=== PATIENT | female | born 1965 | race Hispanic/Latino ===

== ENCOUNTER 2017-07-16 05:46 | Day surgery (SDC) | payer BC ==
[2013-10-03 13:05] VITALS: BMI 43.2
[2017-07-16] MEDS ORDERED: Propofol 10 mg/ml Inj (20 ML) ONE (07:28)
[2017-07-16] MEDS ORDERED: Midazolam 2 MG/2 ML VIAL ONE (07:28)
--- NOTE | 2017-07-16 07:29 | CP.SDSHP ---
Same Day Surgery H & P - History Proposed Procedure: Left knee arthroscopy possible partial med/lat meniscectomies Pre-Op Diagnosis: Left knee medial and lateral meniscal tear - Previous Medical/Surgical History Previous Surgical History: right knee arthroscopy. gallbladder - Allergies Allergies: Allergies No Known Allergies Allergy (Verified 10/03/13 13:05) - Physical Exam Vital Signs: Vital Signs 07/16/17 06:28 Temperature 97.8 F Pulse Rate 82 Respiratory 18 Rate Blood Pressure 138/79 O2 Sat by Pulse 97 Oximetry Mental Status: Alert & Oriented x3 Heart: WNL Lungs: WNL GI: WNL - {Optional Preform as Required} Ortho: Other (LLE: +DP/PT pulses, calves soft NT neg homans sensation intact, no erythema, skin intact) Other Pertinent Findings: [place] [employer]ER[employer] DIRECTOR patient report reviewed, no recent CDS. Patient counseled on the risks of addiction, physical or psychological dependence, and overdose associated with opioid drugs and the danger of taking opioid drugs with alcohol and other central nervous system depressants, and cautioned patient on storage and disposal. - Impression Impression: 52F with left knee pain med/lat meniscal tears for arthroscopy Pt. Evaluated Today:Candidate for Anesthesia & Procedure: Yes - Date & Time Date: 07/16/17 Time: 07:28 Short Stay Discharge - Short Stay Discharge Admitting Diagnosis/Reason for Visit: MEDIAL / LATERAL MENISCAL TEARS Disposition: HOME/ ROUTINE
[2017-07-16] MEDS ORDERED: ceFAZolin IV 2 gm in Dextrose 1 GM/50 ML BAG IVPB ONE (07:40)
[2017-07-16] MEDS ORDERED: Succinylcholine Chloride 20 mg/ml Syr (5 ml) IV ONE (07:45)
[2017-07-16] MEDS ORDERED: Lactated Ringer's 1,000 ML IV ONE ×2 (07:53→09:29)
[2017-07-16] MEDS ORDERED: Lidocaine 1%/Epinephrine 1:100000 30 ml vial IJ ONE (08:00)
[2017-07-16] MEDS ORDERED: HYDROmorphone 0.5 mg/0.5 ml ISec IVP PRN (08:50)
[2017-07-16] MEDS ORDERED: Albuterol HFA 90 mcg/actuation (8 g) ONE (08:50)
[2017-07-16] MEDS ORDERED: Oxycodone/Acetaminophen 5/325 mg Tab PO PRN (09:31)
--- NOTE | 2017-07-16 09:31 | PCM.SURG1 ---
Surgeon's Initial Post Op Note - Surgeon's Notes Surgeon: Anne Archer MD Geotechnicial Properties Technician: Alesia Gauthier PA-C Type of Anesthesia: General Endo Anesthesia Administered By: Dr. Fletcher Pre-Operative Diagnosis: Left knee medial and lateral meniscal tears, DJD Operative Findings: tourniquet not used Post-Operative Diagnosis: same Operation Performed: Left knee arthroscopy with partial medial and lateral meniscectomy, chondroplasty medial femoral condyle Specimen/Specimens Removed: none Estimated Blood Loss: EBL {In ML}: 5 Blood Products Given: N/A Drains Used: No Drains Post-Op Condition: Fair Date of Surgery/Procedure: 07/16/17 Time of Surgery/Procedure: 09:31
[2017-07-16 12:14] VITALS: RESP 18; O2SAT 98
[2017-07-16 13:37] VITALS: BP 114/68; PULSE 87; TEMP 97.8
--- NOTE | 2017-07-16 15:49 | OP ---
PROCEDURE DATE: 07/16/2017 PREOPERATIVE DIAGNOSES: Left knee medial and lateral meniscal tears and degenerative joint disease. POSTOPERATIVE DIAGNOSES: Left knee medial and lateral meniscal tears and degenerative joint disease. PROCEDURE: Left knee arthroscopy with medial and lateral meniscectomies and chondroplasty of the medial femoral condyle. SURGEON: Saud Archer MD. BRIDGE WORKER: Jessica Gauthier. Ms. Gauthier was scrubbed and present throughout the entire case and assisted with manipulating the leg. TYPE OF ANESTHESIA: General. COMPLICATIONS: None. ESTIMATED BLOOD LOSS: 5 mL. INDICATIONS FOR PROCEDURE: This is a 52-year-old female who presented with complaints of left knee pain. Clinical examination was consistent with medial and lateral joint line tenderness, pain at the extremes of knee flexion. Radiographic and MRI examination was consistent with some early degenerative joint disease as well as degenerative tears of both the medial and lateral menisci. After a period of failed nonsurgical management, recommendation was for a left knee arthroscopy. The risks, benefits, and alternatives of the procedure were discussed with the patient and informed consent was obtained. DESCRIPTION OF PROCEDURE: After surgical site was finally verified in the preoperative holding area, the patient was taken to the operating room and placed supine on the operating room table. After administration of general anesthesia, the patient received 2 g of Ancef IV. A lateral post was placed along the proximal aspect of the left thigh. Care was taken to make sure all bony prominences and nerves were well padded and protected, and the left lower extremity was prepped and draped in usual sterile fashion. Bony landmarks were identified about the left knee and our portal sites were injected with a total of 10 mL of 1% lidocaine with epi. An anterolateral arthroscopy portal was established and an arthroscope was inserted into the knee joint. Patellofemoral articulation was evaluated. 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 The patella was noted to track normally. The medial and lateral gutters as well as suprapatellar recess were noted to be free of any loose bodies. The patient was noted to have some inflamed synovial tissue, particularly medially. Next, the medial compartment was evaluated through an anteromedial portal. The medial meniscus was probed, and the posterior horn of the meniscus root appeared to be intact. This was probed extensively, and no evidence of any detachment or excessive translation of the meniscus was appreciated. The patient was noted to have some small fraying anteriorly along the anterior horn and using a combination of Basket forceps and a full-radius shaver, meniscectomy was performed trimming this back to a stable rim. At the junction of the posterior horn of the midbody of the meniscus, there was noted to be some inflamed tissue at the meniscocapsular junction. This area was well probed and no evidence of any meniscocapsular separation was appreciated. At this point, attention was directed to medial femoral condyle. The patient was noted to have some significant chondromalacia of the medial meniscus. This area was probed and some loose flaps of cartilage were appreciated. Using again Basket forceps and a full-radius shaver, these loose flaps of cartilage was debrided back to a stable rim. The patient was noted to have areas of at least 70% to 75% of cartilage thinning. No full thickness defects were appreciated. Again, this was noted to be on the weightbearing surface of medial femoral condyle. Next, the intercondylar notch was evaluated. The ACL was well visualized, probed and appeared to be intact. The PCL was also visualized and appeared to be intact. Next, the lateral compartment was evaluated. The lateral meniscus was probed, and the patient was noted to have a large complex tear of the posterior horn and significant tearing of the anterior horn as well, all the way extending to the midportion of the meniscus. The anterior horn looked to be shredded, and using combination of Basket forceps and full-radius shaver, the anterior horn was resected almost back to the capsular junction. The posterior horn using Basket forceps and a full-radius shaver was again debrided back to a small, but stable rim. The remaining portion of the meniscal remnant appeared to be stable. The chondral surfaces of the lateral tibial plateau was noted to have grade 2 to grade 3 chondral damage. At this point, the knee joint was irrigated through the arthroscopic cannula and all instruments were removed. All portal sites were closed using interrupted 3-0 Vicryl suture and Dermabond to the skin. Sterile dressing was applied. The patient was awakened from the procedure, and taken to recovery room in stable, satisfactory condition. Saud Archer MD
== END 2017-07-16 13:38 | disposition home or self-care (01) ==
LOC: C.SDS 05:46
PROVIDERS: ATTEND Orthopaedic Surgery
DX: M17.12 Unilateral primary osteoarthritis, left knee (principal); M23.242 Derangement of anterior horn of lateral meniscus due to old tear or injury, left knee; M23.222 Derangement of posterior horn of medial meniscus due to old tear or injury, left knee
CPT/HCPCS: 29880; 97116; 97161; G8978; G8979; G8980; J0171; J0690; J1100; J1170; J2001; J2250; J2405; J2704; J2765; J3010; J7120